=== PATIENT | female | born 1985 | race Caucasian/White ===

== ENCOUNTER 2024-01-25 08:16 | Outpatient (AMB) | payer OTHER, SELFPAY ==
--- NOTE | 2024-01-25 08:21 | A.OFFPC_ITS ---
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 Accompanied by: Self / Same As Patient Allergies No Known Allergies Allergy (Unknown, Verified 01/25/24 08:36) Medication List - Last Reconciled 01/25/24 by Mina Danielle PA-C No Known Home Meds Tobacco use date assessed: 01/25/24 Dental Screening Dental Screen Date: 01/25/24 Did you have a dental visit in the last 12 months?: Yes Did you have a dental problem in the last 6 months where you did not have access to dental care?: No Was dental information given to patient?: Patient has dentist HPI Overdue annual PE last seen 02/2019 HPI Details Patient is a 38-year-old female here today for an annual physical. Patient has not been seen since 2019. Patient had a past medical history significant for asthma, anxiety and depression. . Anxiety and depression: Was in cognitive behavioral therapy for 3 years and did not need any daily medication. Does have lorazepam available to her for situational anxiety. Most of her anxiety stems from a bad marriage. Concerns--> report having bilateral wrist pain which has hindered her from doing things. She does admit to intermittent numbness in her palms and fingers. Has been issue for her over the last 2 years that has progressively been getting worse. . 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 Also report her left knee has been bothersome to her for 9 years. She can not recall an injury to her left knee Vaccines: Up-to-date with tetanus. 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 Cognitive needs: No Hearing needs: No Vision needs: No Questionnaire PHQ-9 Over the last 2 weeks, how often have you been bothered by any of the following problems? 1. Little interest or pleasure in doing things: not at all 2. Feeling down, depressed, or hopeless: not at all 3. Trouble falling or staying asleep, or sleeping too much: not at all 4. Feeling tired or having little energy: not at all 5. Poor appetite or overeating: not at all 6. Feeling bad about yourself - or that you are a failure or have let yourself or your family down: not at all 7. Trouble concentrating on things, such as reading the newspaper or watching television: not at all 8. Moving or speaking so slowly that other people could have noticed. Or the opposite - being so fidgety or restless that you have been moving around a lot more than usual: not at all 9. Thoughts that you would be better off or of hurting yourself in some way: not at all Total score: 0 Depression Screening Interpretation: Negative Depression Screening Done: Yes 00912 - PHQ-9 Billing: Yes Source: Developed by Drs. Flash Capellan, Sol Nesbitt, Nik Meeks and colleagues, with an educational shanta from [employer]. Thrive Questionnaire Date Thrive assessed: 01/25/24 I am a: Patient What is your living situation today?: I have a steady place to live Within the past 12 months, did the food you bought not last and you didn't have the money to get more?: Never true Within the past 12 months, did you worry whether your food would run out before you got money to buy more?: Never true Do you have trouble paying for medicines?: No Do you have trouble getting transportation to medical appointments?: No Do you have trouble paying your heating and electricity bill?: No Do you have trouble taking care of your child, family member or friend?: No Do you have trouble with day-to-day activities such as bathing, preparing meals, shopping, managing finances, etc.?: No Are you currently unemployed and looking for a job?: No Are you interested in more education?: No Please select the resources that you would like help with: None Currently or been in a relationship where the following occur: no concerns reported THRIVE Score: 0 AUDIT C Alcohol Use Questionnaire (AUDIT-C) 1. How often do you have a drink containing alcohol?: 4 or more times a week 2. How many drinks containing alcohol do you have on a typical day when you are drinking?: 1 or 2 3. How often do you have six or more drinks on one occasion?: Never Total Score: 4 TAWANNA-7 AMB Questionnaire TAWANNA-7 Date TAWANNA - 7 assessed: 01/25/24 Feeling nervous, anxious, or on edge: 1 = Several days Not being able to stop or control worryin = Not at all Worrying too much about different things: 0 = Not at all Trouble relaxin = Several days Being so restless that it is hard to sit still: 0 = Not at all Becoming easily annoyed or irritable: 1 = Several days Feeling afraid as if something awful might happen: 1 = Several days Total TAWANNA-7 score (0-4 normal; 5-9 mild; 10-14 moderate; 15-21 severe): 4 Source: Developed by Drs. Flash Capellan, Sol Nesbitt, Nik Meeks and colleagues, with an educational shanta from [employer]. TAWANNA-7 Assessment Billing TAWANNA-7 Assessment Tool: TAWANNA-7 Assessment 19982 Review of Systems Const Denies body aches, Denies chills, Denies excessive sweating, Denies fatigue, Denies fever(s) and Denies headache(s) Eyes Denies blurry vision ENT Denies dysphagia, Denies vertigo, Denies dizziness, Denies headache(s), Denies hearing loss and Denies tinnitus Card Denies chest pain, Denies chest pain with activity, Denies syncope, Denies irregular heart rhythm and Denies dyspnea Resp Denies chest congestion, Denies cough, Denies hemoptysis, Denies dyspnea and Denies wheezing GI Denies abdominal pain, Denies melena, Denies hematochezia, Denies coffee ground emesis, Denies dysphagia, Denies diarrhea, Denies nausea and Denies vomiting Denies urinary frequency, Denies dysuria, Denies urinary hesitancy and Denies urinary urgency Musc Denies arthralgias, Denies limited range of motion, Denies muscle cramps and Denies muscle weakness Skin/Breast Denies rash and Denies skin ulcer Neuro Denies Abnormal speech present, Denies confusion, Denies vertigo, Denies dizziness, Denies syncope, Denies headache(s), Denies memory loss and Denies seizure-like activity Psych Denies anxiety, Denies confusion, Denies depression, Denies memory loss, Denies panic attacks and Denies paranoia Endo Denies excessive sweating, Denies fatigue, Denies flushing, Denies polydipsia and Denies polyuria Aller/Immun Denies wheezing Physical exam (Primary Care) Vital Signs: Last Vital Signs Pulse 80 01/25/24 08:22 BP 110/76 01/25/24 08:22 Pulse Ox 97 01/25/24 08:22 Oxygen Delivery Method Room Air 01/25/24 08:22 BMI result Body Mass Index 27.4 Tobacco/Smoking Status: Tobacco use Status Tobacco use date assessed 01/25/24 01/25/24 08:32 Patient Tobacco Use Status Never used Tobacco 01/25/24 08:32 e-Cigarette/Vaping Use Never Used 01/25/24 08:32 PHQ-9: PHQ-9 Score PHQ-9: Total score 0 01/25/24 08:33 Depression Screening Interpretation: Negative Thrive Assessment: Date of Thrive Assessment Date Thrive assessed 01/25/24 01/25/24 08:32 Currently or been in a relationship where the following occur: no concerns reported Const General: cooperative, comfortable, no acute distress, alert and awake; No confusion Orientation/consciousness: oriented to person, oriented to place, patient oriented x3 and No confusion HENMT Head: Yes normocephalic Ears: external ears normal and TM's normal bilaterally Face and sinus: No sinus tenderness Mouth: Normal oral and palatal mucosa present and tongue normal Teeth and gingiva: dentition normal and gingiva normal Throat: Yes posterior oropharynx normal, Yes tonsils normal and Yes uvula midline Eyes Conjunctivae: conjunctivae normal Sclerae: sclerae normal Pupils: Equal, round and reactive pupils present EOM: EOMs intact bilaterally Direct Ophthalmoscopy: No no photophobia Neck Neck: Yes no lymphadenopathy, No tender and Yes no JVD Thyroid: Thyroid normal Carotids: no bruits Chest Chest palpation & inspection: no tenderness Resp Effort & Inspection: normal respiratory effort, no audible wheezes, not labored and no stridor Auscultation: no crackles, no rales, no rhonchi and no wheezes Cardio Jugular venous distension: no JVD Rate: regular rate, not bradycardic and not tachycardic Rhythm: regular rhythm Bruits: no carotid bruits Peripheral pulses: Peripheral pulses 2+ throughout GI Inspection: Yes normal to inspection, No abdominal wall ecchymosis and No visible herniation Palpation (GI): Soft to palpation, nontender, no guarding, not rigid and No hepatosplenomegaly present Auscultation: normoactive bowel sounds General: Yes no CVA tenderness Back/Spine/Pelvis Back: no CVA tenderness and No back tenderness Cervical Spine: cervical ROM normal Thoracic/Lumbar Spine: thoracic and lumbar spine normal to inspection, straight leg raise negative bilaterally, No thoraco-lumbar ROM limited and No lumbar spinal tenderness Skin Lesions: no lesions Rashes: no rashes Wounds: no wounds Neuro General: oriented to person, oriented to place, patient oriented x3, CN's II-XI intact bilaterally and No confusion Cranial nerves: Yes Equal, round and reactive pupils present and Yes Normal accommodation reflex present Cognition (Neuro): normal cognition Speech: No Abnormal speech present Gait exam (Neuro): Normal gait present Motor exam (neuro): 5/5 motor strength present throughout Extrem Other: BILATERAL WRIST WITH POSITIVE VALERIO'S TEST Right upper extremity: full ROM; no cyanosis Left upper extremity: full ROM; no cyanosis Right lower extremity: no edema Left lower extremity: no edema Psych Appearance: grossly normal Mental Status: mental status grossly normal Affect: normal affect Attitude: cooperative Thought process: Normal thought process present Assessment and Plan Assessment & Plan (1) Annual physical exam: Code(s): Z00.00 - Encounter for general adult medical examination without abnormal findings (2) Cervical cancer screening: Code(s): Z12.4 - Encounter for screening for malignant neoplasm of cervix Plan: Is overdue for Pap screening. Will refer to [place] [facility] OPERATOR. (3) Paresthesia of hand, bilateral: Code(s): R20.2 - Paresthesia of skin Plan: As per HPI patient reports intermittent numbness in bilateral hands. Will send for EMG to evaluate for neuropathy. (4) Wrist tendonitis: Code(s): M77.8 - Other enthesopathies, not elsewhere classified Plan: Patient has bilateral positive Valerio's test. 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 Would likely benefit from occupational therapy. And use of wrist splints at night. Will also send for EMG testing due to reports of numbness in her hands to evaluate for carpal tunnel syndrome. (5) Screening for diabetes mellitus (DM): Code(s): Z13.1 - Encounter for screening for diabetes mellitus (6) Chronic pain of left knee: Code(s): M25.562 - Pain in left knee; G89.29 - Other chronic pain Plan: Patient reports left knee pain over the last 9 years. She reports any is painful in the middle joint in the anterior aspect. She can not recall any significant injury. Will get x-ray to evaluate for early onset arthritis. Advised on conservative treatment such as NSAIDs and resting extremity. (7) TAWANNA (generalized anxiety disorder): Code(s): F41.1 - Generalized anxiety disorder Plan: Patient's TAWANNA-7 score positive for mild anxiety which has been existing condition for her over the past several years. She is not speaking with a mental health therapist anymore. She has much better control over anxiety and does have situational anxiety that revolves around her ex-. To use lorazepam on an as needed basis. Orders: Orders Comprehensive [place]. Panel Fast Today Z13.1 - Encounter for screening for diabetes mellitus [place] electromyogram (EMG) Today R20.2 - Paresthesia of skin XR knee LT 3V Today G89.29 - Other chronic pain, M25.562 - Pain in left knee OT Evaluation and Treatment Today M77.8 - Other enthesopathies, not elsewhere classified Referrals SPANISH TRANSLATOR Referral Z12.4 - Encounter for screening for malignant neoplasm of cervix Coding Level of Care Code Est Pt Prev Care [id number]([id number]) Diagnoses Annual physical exam Z00.00 Cervical cancer screening Z12.4 Paresthesia of hand, bilateral R20.2 Wrist tendonitis M77.8 Screening for diabetes mellitus (DM) Z13.1 Chronic pain of left knee M25.562; G89.29 TAWANNA (generalized anxiety disorder) F41.1 Additional Codes TAWANNA-7 Assessment Billing - TAWANNA-7 Assessment Tool: TAWANNA-7 Assessment [id number] ([id number])
[2024-01-25 08:22] VITALS: BP 110/76; PULSE 80; O2SAT 97; BMI 27.4
== END 2024-01-25 08:58 | disposition home or self-care (01) ==
PROVIDERS: Visit Provider Physician Assistant
DX: Z00.00 Encounter for general adult medical examination without abnormal findings (principal); R20.2 Paresthesia of skin; M77.8 Other enthesopathies, not elsewhere classified; Z13.1 Encounter for screening for diabetes mellitus; M25.562 Pain in left knee; G89.29 Other chronic pain; F41.1 Generalized anxiety disorder
CPT/HCPCS: 99395

== ENCOUNTER 2024-01-31 08:17 | Outpatient (REF) | payer OTHER, SELFPAY ==
--- NOTE | 2024-01-31 08:21 | EMG_ITS ---
Bilateral median and ulnar motor and sensory studies were obtained, bilateral radial sensory and median and lateral antecubital brachial sensory studies were obtained, and paraspinal muscles were tested with a needle. IMPRESSION: This is an unremarkable study with no significant abnormality. MD JONEL Linares/HERIBERTO / [id number]
== END 2024-01-31 08:18 | disposition home or self-care (01) ==
LOC: HO.NEURO 08:17
PROVIDERS: PCP Physician Assistant; Visit Provider Physician Assistant
DX: R20.2 Paresthesia of skin (principal)
CPT/HCPCS: 95886; 95913

== ENCOUNTER 2024-03-12 08:00 | Outpatient (RCR) | payer OTHER, SELFPAY ==
--- NOTE | 2024-02-03 10:17 | MHC.OT.EP ---
[address] [phone] Occupational Therapy Plan of Care Patient Name: Fani Parrish Date of Evaluation: 02/03/24 Diagnosis: Pain Location: Bilateral wrists/ hands Pain Score: 7 Pain Scale Used: Numeric (0 - 10) Aggravating Factors: end of her work day pain is worse Alleviating Factors: N/a - Assessment: Pt is a 38 yr old, R hand dominant, female who reports B pain in wrists. 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 Pt saw the PA and addressed these concerns and was sent for the EMG. Pt reports no bracing , taping, or modalities. 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 Thank you once again for your referral.
--- NOTE | 2024-03-12 08:44 | MHC.OT.DC ---
[address] [phone] F: [phone] Occupational Therapy Discharge Note Patient Name: Fani Parrish Provider: Mina Danielle PA-C Diagnosis: B/L wrist tendinitis Date of Evaluation: 02/03/24 Date of Discharge: 03/12/24 Treatments to Date: 10 Discharge Status: Achieved Goals Improved Function Independent with HEP Discharge Summary: Doing well, no current wrist pain, some discomfort in small finger but reports she spend several hours gripping reigns during horseback ride during vacation last week. Good follow through w/ HEP and understanding of joint protection and body mechanics, all goals met. Electronically Signed By: Irene Martínez OTR/L CHT Reviewed/agree with student documentation: N/A Therapist: Please Sign and return to therapist, thank you for your referral.
== END 2024-03-12 08:47 | disposition home or self-care (01) ==
LOC: HO.OT 08:00
PROVIDERS: PCP Physician Assistant; Visit Provider Physician Assistant
DX: M77.8 Other enthesopathies, not elsewhere classified (principal)
CPT/HCPCS: 29125; 97033; 97035; 97110; 97140; 97166; 97535; 97760

== ENCOUNTER 2025-02-13 07:52 | Outpatient (AMB) | payer OTHER, SELFPAY ==
--- NOTE | 2025-02-13 08:30 | A.OFFPC_ITS ---
Vital Signs 02/13/25 08:31 Height 5 ft 2 in Weight 160 lb BMI 29.3 BP 110/68 Blood Pressure Location Lt brachial Position Sitting Pulse 90 Pulse Source Pulse Oximeter Temp 75.5 F L Temp Source Temporal Artery Scan Pulse Oximetry (%) 98 Oxygen Delivery Method Room Air Intake Visit Reasons: ANNUAL PE - see comments Intake Note: Patient is here today for a physical. Multifold Operator Required: No Glass Cut Off Supervisor: Not Required per policy Accompanied by: Self / Same As Patient Allergies No Known Allergies Allergy (Unknown, Verified 02/13/25 08:36) Medication List - Last Reconciled 02/13/25 by Mina Danielle PA-C No Known Home Meds Tobacco use date assessed: 02/13/25 Dental Screening Dental Screen Date: 02/13/25 Did you have a dental visit in the last 12 months?: Yes Did you have a dental problem in the last 6 months where you did not have access to dental care?: No Was dental information given to patient?: Patient has dentist HPI ANNUAL PE - see comments HPI Details Patient is a 39-year-old female here today for an annual physical. Patient had a past medical history significant for asthma, anxiety and depression. . Anxiety and depression: She reports her anxiety and depression has been much better as of late. She is not using any medication for her mental. She did get tools for mental health therapist to control her anxiety and depression Vaccines: Up-to-date with tetanus. UTD COVID vaccine, .. 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 Cognitive needs: No Hearing needs: No Vision needs: No Questionnaire PHQ-9 Over the last 2 weeks, how often have you been bothered by any of the following problems? 1. Little interest or pleasure in doing things: not at all 2. Feeling down, depressed, or hopeless: not at all 3. Trouble falling or staying asleep, or sleeping too much: several days 4. Feeling tired or having little energy: not at all 5. Poor appetite or overeating: not at all 6. Feeling bad about yourself - or that you are a failure or have let yourself or your family down: not at all 7. Trouble concentrating on things, such as reading the newspaper or watching television: not at all 8. Moving or speaking so slowly that other people could have noticed. Or the opposite - being so fidgety or restless that you have been moving around a lot more than usual: not at all 9. Thoughts that you would be better off or of hurting yourself in some way: not at all Total score: 1 Depression Screening Interpretation: Negative Depression Screening Done: Yes 16079 - PHQ-9 Billing: Yes Source: Developed by Drs. Flash Capellan, Sol Nesbitt, Nik Meeks and colleagues, with an educational shanta from [employer]. Thrive Questionnaire Date Thrive assessed: 02/13/25 I am a: Patient What is your living situation today?: I have a steady place to live Within the past 12 months, did the food you bought not last and you didn't have the money to get more?: Never true Within the past 12 months, did you worry whether your food would run out before you got money to buy more?: Never true Do you have trouble paying for medicines?: No Do you have trouble getting transportation to medical appointments?: No Do you have trouble paying your heating and electricity bill?: No Do you have trouble taking care of your child, family member or friend?: No Do you have trouble with day-to-day activities such as bathing, preparing meals, shopping, managing finances, etc.?: No Are you currently unemployed and looking for a job?: No Are you interested in more education?: No Please select the resources that you would like help with: None Currently or been in a relationship where the following occur: No concerns reported THRIVE Score: 0 AUDIT C Alcohol Use Questionnaire (AUDIT-C) 1. How often do you have a drink containing alcohol?: 2-3 times a week 2. How many drinks containing alcohol do you have on a typical day when you are drinking?: 3 or 4 3. How often do you have six or more drinks on one occasion?: Less than monthly Total Score: 5 TAWANNA-7 AMB Questionnaire TAWANNA-7 Date TAWANNA - 7 assessed: 02/13/25 Feeling nervous, anxious, or on edge: 0 = Not at all Not being able to stop or control worryin = Not at all Worrying too much about different things: 0 = Not at all Trouble relaxin = Not at all Being so restless that it is hard to sit still: 0 = Not at all Becoming easily annoyed or irritable: 0 = Not at all Feeling afraid as if something awful might happen: 0 = Not at all Total TAWANNA-7 score (0-4 normal; 5-9 mild; 10-14 moderate; 15-21 severe): 0 Source: Developed by Drs. Flash Capellan, Sol Nesbitt, Nik Meeks and colleagues, with an educational shanta from [employer]. TAWANNA-7 Assessment Billing TAWANNA-7 Assessment Tool: TAWANNA-7 Assessment 29427 Review of Systems Const Denies body aches, Denies chills, Denies excessive sweating, Denies fatigue, Denies fever(s) and Denies headache(s) Eyes Denies blurry vision ENT Denies dysphagia, Denies vertigo, Denies dizziness, Denies headache(s), Denies hearing loss and Denies tinnitus Card Denies chest pain, Denies chest pain with activity, Denies syncope, Denies irregular heart rhythm and Denies dyspnea Resp Denies chest congestion, Denies cough, Denies hemoptysis, Denies dyspnea and Denies wheezing GI Denies abdominal pain, Denies melena, Denies hematochezia, Denies coffee ground emesis, Denies dysphagia, Denies diarrhea, Denies nausea and Denies vomiting Denies urinary frequency, Denies dysuria, Denies urinary hesitancy and Denies urinary urgency Musc Denies arthralgias, Denies limited range of motion, Denies muscle cramps and Denies muscle weakness Skin/Breast Denies rash and Denies skin ulcer Neuro Denies Abnormal speech present, Denies confusion, Denies vertigo, Denies dizziness, Denies syncope, Denies headache(s), Denies memory loss and Denies seizure-like activity Psych Denies anxiety, Denies confusion, Denies depression, Denies memory loss, Denies panic attacks and Denies paranoia Endo Denies excessive sweating, Denies fatigue, Denies flushing, Denies polydipsia and Denies polyuria Aller/Immun Denies wheezing Physical exam (Primary Care) Vital Signs: Last Vital Signs Temp 75.5 F L 02/13/25 08:31 Pulse 90 02/13/25 08:31 BP 110/68 02/13/25 08:31 Pulse Ox 98 02/13/25 08:31 Oxygen Delivery Method Room Air 02/13/25 08:31 BMI result Body Mass Index 29.3 Tobacco/Smoking Status: Tobacco use Status Tobacco use date assessed 02/13/25 02/13/25 08:35 Patient Tobacco Use Status Never used Tobacco 02/13/25 08:39 e-Cigarette/Vaping Use Never Used 02/13/25 08:39 PHQ-9: PHQ-9 Score PHQ-9: Total score 1 02/13/25 08:44 Depression Screening Interpretation: Negative Thrive Assessment: Date of Thrive Assessment Date Thrive assessed 02/13/25 02/13/25 08:35 Currently or been in a relationship where the following occur: No concerns reported Const General: cooperative, comfortable, no acute distress, alert and awake; No confusion Orientation/consciousness: oriented to person, oriented to place, patient oriented x3 and No confusion HENMT Head: Yes normocephalic Ears: external ears normal and TM's normal bilaterally Face and sinus: No sinus tenderness Mouth: Normal oral and palatal mucosa present and tongue normal Teeth and gingiva: dentition normal and gingiva normal Throat: Yes posterior oropharynx normal, Yes tonsils normal and Yes uvula midline Eyes Conjunctivae: conjunctivae normal Sclerae: sclerae normal Pupils: Equal, round and reactive pupils present EOM: EOMs intact bilaterally Direct Ophthalmoscopy: No no photophobia Neck Neck: Yes no lymphadenopathy, No tender and Yes no JVD Thyroid: Thyroid normal Carotids: no bruits Chest Chest palpation & inspection: no tenderness Resp Effort & Inspection: normal respiratory effort, no audible wheezes, not labored and no stridor Auscultation: no crackles, no rales, no rhonchi and no wheezes Cardio Jugular venous distension: no JVD Rate: regular rate, not bradycardic and not tachycardic Rhythm: regular rhythm Bruits: no carotid bruits Peripheral pulses: Peripheral pulses 2+ throughout GI Inspection: Yes normal to inspection, No abdominal wall ecchymosis and No visible herniation Palpation (GI): Soft to palpation, nontender, no guarding, not rigid and No hepatosplenomegaly present Auscultation: normoactive bowel sounds General: Yes no CVA tenderness Back/Spine/Pelvis Back: no CVA tenderness and No back tenderness Cervical Spine: cervical ROM normal Thoracic/Lumbar Spine: thoracic and lumbar spine normal to inspection, straight leg raise negative bilaterally, No thoraco-lumbar ROM limited and No lumbar spinal tenderness Skin Lesions: no lesions Rashes: no rashes Wounds: no wounds Neuro General: oriented to person, oriented to place, patient oriented x3, CN's II-XI intact bilaterally and No confusion Cranial nerves: Yes Equal, round and reactive pupils present and Yes Normal accommodation reflex present Cognition (Neuro): normal cognition Speech: No Abnormal speech present Gait exam (Neuro): Normal gait present Motor exam (neuro): 5/5 motor strength present throughout Extrem Right upper extremity: full ROM; no cyanosis Left upper extremity: full ROM; no cyanosis Right lower extremity: no edema Left lower extremity: no edema Psych Appearance: grossly normal Mental Status: mental status grossly normal Affect: normal affect Attitude: cooperative Thought process: Normal thought process present Coding Level of Care Code Est Pt Prev Care 18-39y([id number]) Diagnoses Annual physical exam Z00.00 TAWANNA (generalized anxiety disorder) F41.1 Encounter for screening mammogram for malignant neoplasm of breast Z12.31 Breast cancer screening modality: mammogram Cervical cancer screening Z12.4 Additional Codes TAWANNA-7 Assessment Billing - TAWANNA-7 Assessment Tool: TAWANNA-7 Assessment 38244 ([id number]) PHQ-9 - 02585 - PHQ-9 Billing: Yes ([id number]) Assessment & Plan Assessment & Plan (1) Annual physical exam: Code(s): Z00.00 - Encounter for general adult medical examination without abnormal findings Category: Medical Plan: As per HPI (2) TAWANNA (generalized anxiety disorder): Code(s): F41.1 - Generalized anxiety disorder Category: Medical Plan: Patient's anxiety has been much better since doing mental health therapy. She is not taking any mental health medication at this time. (3) Breast cancer screening: Code(s): Z12.39 - Encounter for other screening for malignant neoplasm of breast Category: Medical Qualifiers: Breast cancer screening modality: mammogram Qualified Code(s): Z12.31 - Encounter for screening mammogram for malignant neoplasm of breast Plan: Patient would like to start getting mammograms (4) Cervical cancer screening: Code(s): Z12.4 - Encounter for screening for malignant neoplasm of cervix Category: Medical Plan: Patient willing to call bedspring assembler office to schedule appointment for Pap screening. Orders: Orders Comprehensive [place]. Panel Fast Today Z13.1 - Encounter for screening for diabetes mellitus Complete Blood Count no Diff Today Z13.1 - Encounter for screening for diabetes mellitus MM screening mammo BI Today Z12.31 - Encounter for screening mammogram for malignant neoplasm of breast, Z12.39 - Encounter for other screening for malignant neoplasm of breast
[2025-02-13 08:31] VITALS: BP 110/68; PULSE 90; TEMP 24.2; O2SAT 98; BMI 29.3
== END 2025-02-13 08:49 | disposition home or self-care (01) ==
LOC: HO.HMCH 07:52
PROVIDERS: PCP Physician Assistant; Visit Provider Physician Assistant
DX: Z00.00 Encounter for general adult medical examination without abnormal findings (principal); F41.1 Generalized anxiety disorder; Z12.31 Encounter for screening mammogram for malignant neoplasm of breast; Z12.4 Encounter for screening for malignant neoplasm of cervix

== ENCOUNTER → 2025-02-13 07:52 | Outpatient (BNVA) | payer OTHER, SELFPAY | PROVIDERS: PCP Physician Assistant; Visit Provider Physician Assistant | DX: Z00.00 Encounter for general adult medical examination without abnormal findings (principal); F41.1 Generalized anxiety disorder; J45.909 Unspecified asthma, uncomplicated; F32.A Depression, unspecified | CPT/HCPCS: 96127 ==

== ENCOUNTER 2025-04-17 08:23 | Outpatient (REF) | payer OTHER, SELFPAY | END 2025-04-17 08:24 | disposition home or self-care (01) | LOC: HO.MAMMO 08:23 | PROVIDERS: PCP Physician Assistant; Visit Provider Physician Assistant | DX: Z12.31 Encounter for screening mammogram for malignant neoplasm of breast (principal) | CPT/HCPCS: 77063; 77067 ==

== ENCOUNTER → 2025-04-17 08:45 | Outpatient (BNV) | payer OTHER, SELFPAY | PROVIDERS: PCP Physician Assistant; Visit Provider Radiology Body Imaging | DX: Z12.31 Encounter for screening mammogram for malignant neoplasm of breast (principal) | CPT/HCPCS: 77063; 77067 ==